=== PATIENT | female | born 1980 | race Caucasian/White ===

== ENCOUNTER 2019-05-29 08:50 | Emergency (ER) | payer MEDICAID ==
[2019-05-29] MEDS ORDERED: Lactated Ringers 1,000 ML IV ONE (09:38)
[2019-05-29] MEDS ORDERED: Ondansetron 4 MG/2 ML SDV IVPUSH ONE (09:38)
[2019-05-29] MEDS ORDERED: Sodium Chloride 0.9% 10 ML Syringe FLUSH PRN (09:39)
--- NOTE | 2019-05-29 09:40 | EDM.PDOC ---
ED HPI GENERAL MEDICAL PROBLEM - General Chief Complaint: General Stated Complaint: HEAD COLD LOTS OF VOMITING Time Seen by Provider: 05/29/19 09:22 Source of Information: Reports: Patient History Limitations: Reports: No Limitations - History of Present Illness INITIAL COMMENTS - FREE TEXT/NARRATIVE: 38-year-old female presents emergency department today complaint of runny nose nausea vomiting head pressure is been going on for 2 days no fevers no vaginal bleeding no discharge she is currently 6 months intrauterine - Related Data Allergies Allergy/AdvReac Type Severity Reaction Status Date / Time No Known Allergies Allergy Verified 11/06/13 03:47 Home Meds: Home Meds Labetalol [Normodyne] 100 mg PO DAILY 05/29/19 [History] Ondansetron [Zofran ODT] 4 mg PO TID PRN #10 tab.dis 05/29/19 [Rx] Past Medical History [employer] History: Reports: Other [employer] History: pt. is 6 months gestation now, third child Other Dermatologic History: skin infection - Infectious Disease History Infectious Disease History: Reports: Chicken Pox - Past Surgical History HEENT Surgical History: Reports: Myringotomy w Tube(s) Female Surgical History: Reports: Section Social & Family History - Tobacco Use Smoking Status *Q: Never Smoker - Caffeine Use Caffeine Use: Reports: Soda ED ROS GENERAL - Review of Systems Review Of Systems: See Below Constitutional: Reports: No Symptoms HEENT: Reports: Rhinitis Respiratory: Reports: No Symptoms Cardiovascular: Reports: No Symptoms GI/Abdominal: Reports: Nausea, Vomiting. Denies: Abdominal Pain, Diarrhea : Reports: No Symptoms ED EXAM, GENERAL - Physical Exam Exam: See Below Exam Limited By: No Limitations General Appearance: Alert, WD/WN, No Apparent Distress Eye Exam: Bilateral Eye: Normal Inspection Ears: Normal External Exam, Normal Canal, Hearing Grossly Normal, Normal TMs Nose: Normal Inspection, No Blood, Clear Rhinorrhea Throat/Mouth: Normal Inspection, Normal Lips, Normal Teeth, Normal Gums, Normal Oropharynx, Normal Voice, No Airway Compromise Head: Atraumatic, Normocephalic Neck: Normal Inspection, Supple, Non-Tender, Full Range of Motion Respiratory/Chest: No Respiratory Distress, Lungs Clear, Normal Breath Sounds, No Accessory Muscle Use, Chest Non-Tender Cardiovascular: Regular Rate, Rhythm, No Murmur GI/Abdominal: Soft, Other (gravda) Course - Vital Signs Last Recorded V/S: Last Vital Signs Temp 95.9 F 05/29/19 11:54 Pulse 102 H 05/29/19 11:54 Resp 18 05/29/19 11:54 BP 123/82 05/29/19 11:54 Pulse Ox 98 05/29/19 11:54 - Orders/Labs/Meds Orders: Active Orders 24 hr Category Date Time Status Peripheral IV Care [RC] . DIRECTED Care 05/29/19 09:39 Active Sodium Chloride 0.9% [Saline Flush] Med 05/29/19 09:39 Active 10 ml FLUSH ASDIRECTED PRN Peripheral IV Insertion Adult [OM.PC] Urgent Oth 05/29/19 09:38 Ordered Medication Orders Sodium Chloride (Saline Flush) 10 ml FLUSH ASDIRECTED PRN PRN Reason: Keep Vein Open Last Admin: 05/29/19 09:57 Dose: 10 ml Labs: Laboratory Tests 05/29/19 05/29/19 05/29/19 Range/Units 09:54 09:54 10:54 WBC 17.5 H (4.5-11.0) K/uL RBC 5.08 (3.30-5.50) M/uL Hgb 10.0 L D (12.0-15.0) g/dL Hct 33.2 L (36.0-48.0) % MCV 65 L (80-98) fL MCH 20 L (27-31) pg MCHC 30 L (32-36) % Plt Count 452 H (150-400) K/uL Neut % (Auto) 89 H (36-66) % Lymph % (Auto) 9 L (24-44) % [place] % (Auto) 2 (2-6) % Eos % (Auto) 0 L (2-4) % Baso % (Auto) 0 (0-1) % Sodium 135 L (140-148) mmol/L Potassium 3.5 L (3.6-5.2) mmol/L Chloride 101 (100-108) mmol/L Carbon Dioxide 23 (21-32) mmol/L Anion Gap 14.5 H (5.0-14.0) mmol/L BUN 6 L (7-18) mg/dL Creatinine 0.6 (0.6-1.0) mg/dL Est Cr Clr Drug Dosing 93.11 mL/min Estimated GFR (MDRD) > 60 (>60) Glucose 109 H (74-106) mg/dL Calcium 8.6 (8.5-10.1) mg/dL Urine Color Yellow (YELLOW) Urine Appearance Clear (CLEAR) Urine pH 7.0 (5.0-8.0) Ur Specific [place] 1.015 (1.008-1.030) Urine Protein Negative (NEGATIVE) mg/dL Urine Glucose (UA) Normal (NEGATIVE) mg/dL Urine Ketones Negative (NEGATIVE) mg/dL Urine Occult Blood Negative (NEGATIVE) Urine Nitrite Negative (NEGATIVE) Urine Bilirubin Negative (NEGATIVE) Urine Urobilinogen 0.2 (0.2-1.0) EU/dL Ur Leukocyte Esterase Negative (NEGATIVE) Urine RBC Not seen (0-5) Urine WBC 0-5 (0-5) Ur Epithelial Cells Rare Amorphous Sediment Not seen Urine Bacteria Rare Urine Mucus Not seen Meds: Medications Generic Name Dose Route Start Last Admin Trade Name Freq PRN Reason Stop Dose Admin Sodium Chloride 10 ml 05/29/19 09:39 05/29/19 09:57 Saline Flush FLUSH 10 ml ASDIRECTED PRN Administration Keep Vein Open Discontinued Medications Generic Name Dose Route Start Last Admin Trade Name Freq PRN Reason Stop Dose Admin Lactated Ringer's 1,000 mls @ 999 mls/hr 05/29/19 09:38 05/29/19 09:57 Ringers, Lactated IV 05/29/19 10:38 999 mls/hr BOLUS ONE Administration Ondansetron HCl 4 mg 05/29/19 09:38 05/29/19 09:57 Zofran IVPUSH 05/29/19 09:39 4 mg ONETIME ONE Administration Departure - Departure Time of Disposition: 12:00 Disposition: Home, Self-Care 01 Condition: Fair Clinical Impression: Nausea & vomiting Qualifiers: Vomiting type: unspecified Vomiting Intractability: non-intractable Qualified Code(s): R11.2 - Nausea with vomiting, unspecified - Discharge Information Prescriptions: Ondansetron [Zofran ODT] 4 mg PO TID PRN #10 tab.dis PRN Reason: Nausea Referrals: Emily Dotson PA [Primary Care Provider] - Forms: ED Department Discharge Additional Instructions: Medications have been faxed to [facility] please keep your follow-up appointment with her [employer] on Wednesday - My Orders Last 24 Hours: My Active Orders 05/29/19 09:38 Peripheral IV Insertion Adult [OM.PC] Urgent 05/29/19 09:39 Peripheral IV Care [RC] . DIRECTED Sodium Chloride 0.9% [Saline Flush] 10 ml FLUSH ASDIRECTED PRN - Assessment/Plan Last 24 Hours: My Active Orders 05/29/19 09:38 Peripheral IV Insertion Adult [OM.PC] Urgent 05/29/19 09:39 Peripheral IV Care [RC] . DIRECTED Sodium Chloride 0.9% [Saline Flush] 10 ml FLUSH ASDIRECTED PRN Plan: Assessment Acuity = acute Site and laterality = nausea and vomiting complicated with second trimester and gestational hypertension Etiology = probable viral syndrome Manifestations = none Location of injury = Home Lab values = WBC elevated 17.6 consistent leukocytosis hemoglobin low at 10.0 consistent with microchromic anemia potassium low at 3.5 consistent with hypokalemia the remainder of electrolytes unremarkable urinalysis negative Plan Called discussed case with her [employer] at 10 AM recommended fluids Zofran she does have a appointment with her [employer] in 2 days. Prescription sent to [facility] for Zofran 4 mg ODT 1 tab by mouth 3 times a day when necessary total #10 This note was dictated using [employer] voice recognition software please call with any questions on syntax or grammar.
[2019-05-29 11:55] VITALS: BP 123/82; PULSE 102
== END 2019-05-29 12:06 | disposition home or self-care (01) ==
LOC: JP.ED 08:50
DX: O21.2 Late vomiting of pregnancy (principal); Z3A.24 24 weeks gestation of pregnancy
CPT/HCPCS: 36415; 80048; 81001; 85025; 96361; 96374; 99283; J2405; J7120